=== PATIENT | female | born 1940 | race Hispanic/Latino ===

== ENCOUNTER 2019-04-02 16:38 | Emergency (ER) | payer MEDICARE, OTHER ==
[~2019-04-02] VITALS: Ht 149.9 cm; Wt 65.8 kg
[2019-04-02] MEDS ORDERED: ACETAMINOPHEN/CODEINE 300MG - 30MG TAB PO ONE (17:00)
[2019-04-02 18:26] VITALS: BP 160/60
--- NOTE | 2019-04-02 18:38 | Diagnostic Imaging Report ---
Exam: Left-sided ribs with PA chest History: Status post fall, left-sided pain Comparison: None. Findings: There is mildly decreased bone mineralization. No acute, displaced fracture or dislocation. Mild deformity of the posterolateral aspect of the left eighth rib, which may reflect an old healed fracture. No lytic or expansile lesion No soft tissue swelling. Degenerative changes in the left glenohumeral joint, with presence of 1.4 cm calcified loose body. Lungs are well-inflated and grossly clear. No consolidation or effusion. Mild prominence of the cardiac silhouette. Uncoiled aorta. Impression: 1. Mild demineralization. No acute, displaced fracture or dislocation, within the limitations of the study. Signed by: Dr. Mike Obrien M.D. on 04/02/2019 6:34 PM
--- NOTE | 2019-04-02 18:39 | Diagnostic Imaging Report ---
Exam: Bilateral Knee Series. History: Status post fall Comparison: None. Findings: Right: 3 views of the right knee. There is decreased bone mineralization. Negative for acute, displaced fracture or dislocation. Moderate tricompartmental degenerative joint disease of the right knee, with joint space narrowing particularly in the lateral femorotibial compartment, subchondral sclerosis and moderate osteophytosis. No abnormal soft tissue calcification or mass. No effusions or soft tissue swelling.. Left:3 views of the left knee. There is decreased bone mineralization. Negative for acute, displaced fracture or dislocation. Status post left total hip replacement, in satisfactory alignment. No hardware failure. No abnormal soft tissue calcification or mass. Trace suprapatellar effusion. Impression: 1. No acute abnormalities. Signed by: Dr. Mike Obrien M.D. on 04/02/2019 6:36 PM
--- OUTSIDE RECORDS SUMMARY | 2019-04-09 11:53 | XMS REPORT ---
[facility] Address Unknown Phone Unavailable Care Team Providers Care Engine Repair Supervisor Name Role Phone ROSA MARIA AGGARWAL Unavailable Unavailable Payers Payer Name Policy Type Policy Number Effective Date Expiration Date Problems This patient has no known problems. Allergies, Adverse Reactions, Alerts Allergy Name Allergy Type Status Severity Reaction(s) Onset Date Inactive Date Treating Clinician Comments No Known Drug Allergies DA Active U 2017-02-17 00:00:00 No Known Allergies DA Active U 2013-04-23 00:00:00 Medications This patient has no known medications. Results Test Description Test Time Test Comments Text Results Atomic Results Result Comments KNEE THREE VIEWS BILATERAL 2019-04-02 18:34:00 [place] [address] Patient Name: MARY HOLBROOK I MR #: [id number] : 1940 Age/Sex: 78/F Req #: [id number] Adm Physician: Ordered by: OLIVIA MORA MUD TEMPERER Report #: [id number] Location: ER Room/Bed: Procedure: [id number] DX/KNEE THREE VIEWS BILATERAL Exam Date: 04/02/19 Exam Time: 1730 REPORT STATUS: Signed Exam: Bilateral Knee Series. History: Status post fall Comparison: None. Findings: Right: 3 views of the right knee. There is decreased bone mineralization. Negative for acute, displaced fracture or dislocation. Moderate tricompartmental degenerative joint disease of the right knee, with joint space narrowing particularly in the lateral femorotibial compartment, subchondral sclerosis and moderate osteophytosis. No abnormal soft tissue calcification or mass. No effusions or soft tissue swelling.. Left:3 views of the left knee. There is decreased bone mineralization. Negative for acute, displaced fracture or dislocation. Status post left total hip replacement, in satisfactory alignment. No hardware failure. No abnormal soft tissue calcification or mass. Trace suprapatellar effusion. Impression: 1. No acute abnormalities. Signed by: Dr. Dmitriy Obrien M.D. on 04/02/2019 6:36 PM Dictated By: DMITRIY OBRIEN MD 35 Transcribed By: ALL on 04/02/191835 COPY TO: OLIVIA MORA NP/HEAVENLY 2019-04-02 18:30:00 [place] [address] Patient Name: MARY HOLBROOK I MR #: [id number] : 1940 Age/Sex: 78/F Req #: [id number] [facility] Physician: Ordered by: OLIVIA MORA NP Report #: [id number] Location: Room/Bed: Procedure: [id number] DX/RIBS UNILAT W/CXR Exam Date: 04/02/19 Exam Time: 1730 REPORT STATUS: Signed Exam: Left-sided ribs with PA chest History: Status post fall, left-sided pain Comparison: None. Findings: There is mildly decreased bone mineralization. No acute, displaced fracture or dislocation. Mild deformity of the posterolateral aspect of the left eighth rib, which may reflect an old healed fracture. No lytic or expansile lesion No soft tissue swelling. Degenerative changes in the left glenohumeral joint, with presence of 1.4 cm calcified loose body. Lungs are well-inflated and grossly clear. No consolidation or effusion. Mild prominence of the cardiac silhouette. Uncoiled aorta. Impression: 1. Mild demineralization. No acute, displaced fracture or dislocation, within the limitations of the study. Signed by: Dr. Dmitriy Obrien M.D. on 04/02/2019 6:34 PM Dictated By: DMITRIY OBRIEN MD 33 Transcribed By: ALL on 04/02/191833 COPY TO: OLIVIA MORA NP SURGICAL SPECIMENS 2018-02-16 09:51:00 RUN DATE: 03/04/18 [facility] PAGE 1 RUN TIME: 2241 Specimen Inquiry RUN USER: INTERFACE PATIENT: MARY HOLBROOK LOC: Y.5TH #: [id number] AGE/SX: 77/F ROOM: [facility] RE02/10/18REG DR: Balwinder Reagan MD : 38 BED: A DIS: 02/11/18 STATUS: DIS IN TLOC: SPEC #: [id number] RECD: 02/10/18 STATUS: [facility] #: [id number] [place]: 02/10/[address] [facility] DR: Balwinder Reagan MD ENTERED: 02/10/18 SP TYPE: SURG OTHR DR: Arthur Torres MD Undefined ProviderORDERED: LEVEL 4 G/M, DECALCIFICATION COMMENTS: SOURCE: LEFT FEMORAL CONDYLE CODES: [id number] - ARTICULAR SYSTE [id number] - BONE CALCIUM, NOS [id number] - BONE PSEUDOGOUT, NOS [id number] - BONE DEPOSITION, NOS [id number] - BONE EXCISION, NOS COPIES TO: [place] [address] [place] [address] [email or web address] Arthur Torres MD [address] [address] Undefined Provider ICD CODES: 275.4 - PROCEDURES: LEVEL 4 G/M (Incomplete) DECALCIFICATION (Incomplete) TISSUES: BONE,NOS ANATOMIC PATHOLOGY DIAGNOSIS LEFT FEMORAL CONDYLE, EXCISION: - OSTEOARTHRITIS/DEGENERATIVE JOINT DISEASE. - FOCAL CALCIUM PYROPHOSPHATE DIHYDRATE CRYSTAL DEPOSITION (PSEUDOGOUT). CLINICAL HISTORY/PRE-OP DIAG Left knee osteoarthritis. CONTINUED ON NEXT PAGE ----- RUN DATE: 03/04/18 [facility] PAGE 2 RUN TIME: 2 Specimen Inquiry RUN USER: INTERFACE SPEC #: [id number] PATIENT: MARY HOLBROOK #[id number] (Continued) ------- COMMENTS There is no xray available for review. PERMANENT SECTIONS PREPARED AT: [facility] DEPARTMENT OF PATHOLOGY [address] [place] [id number] GROSS DESCRIPTION The case is received in one part, labeled with the patient's name "Mary Holbrook"and accession number "[id number]", accompanied by a requisition slip labeled with thesame patient name and accession number. Received in formalin labeled "left femoral condyle" is a 5.0 x 3.0 x 0.8 cm piece oftan-yellow bone surfaced by celeste-yellow, smooth articular cartilage that shows a slight areaof cartilage thinning. The cartilage thickness ranges from 0.1 cm to 0.2 cm. Thesubchondral bone is celeste-pink and trabeculated. The cartilage has focal pinpoint areas ofchalky white material. Public Relations Associate sections of bone are submitted in cassettes [id number] decalcification. Cartilage sections, to include chalky, white areas, aresubmitted in cassette A4. (ii) MICROSCOPIC Sections of the left femoral condyle show bone and cartilage with thinning of thecartilaginous surface. There is fissuring and fibrillation with clonal chondrocyteproliferation, as well as osteophytes. The marrow is fatty. There is no osteomyelitis ormalignancy. The surface cartilage has some nodular areas of basophilic material that showrhomboid-shaped crystals on polarized light microscopy consistent with pseudogout. Signed SIGNATURE ON FILE Lindsay Sparks 02/16/18 0951 --------- END OF REPORT
== END 2019-04-02 18:53 | disposition home or self-care (01) ==
LOC: ER 16:38
DX: S20.212A Contusion of left front wall of thorax, initial encounter (principal); S20.222A Contusion of left back wall of thorax, initial encounter; W01.0XXA Fall on same level from slipping, tripping and stumbling without subsequent striking against object, initial encounter; Y93.01 Activity, walking, marching and hiking; Y92.008 Other place in unspecified non-institutional (private) residence as the place of occurrence of the external cause; I10 Essential (primary) hypertension; E11.9 Type 2 diabetes mellitus without complications
CPT/HCPCS: 71101; 99283

== ENCOUNTER 2021-03-29 17:05 | Emergency (ER) | payer MEDICARE, OTHER ==
[~2021-03-29] VITALS: Ht 149.9 cm; Wt 89.4 kg
[2021-03-29] MEDS ORDERED: MECLIZINE HCL 12.5 MG TAB PO ONE (17:30)
[2021-03-29 18:03] LABS: BASOPHILS % 0.4 % (0.0-1.0); EOSINOPHILS # (AUTO) 0.1 (0.0-0.4); EOSINOPHILS % 1.2 % (0.0-6.0); HEMOGLOBIN 13.8 g/dL (12.0-16.0); LYMPHOCYTES # (AUTO) 2.2 (1.0-3.2); LYMPHOCYTES % 27.4 % (18.0-39.1); MEAN CORPUSCULAR HEMOGLOBIN 28.8 pg (28-32); MEAN CORPUSCULAR HGB CONC 32.1 g/dL (31-35); MEAN CORPUSCULAR VOLUME 89.8 fL (81-99); MONOCYTES # (AUTO) 0.5 (0.2-0.8); MONOCYTES % 6.6 % (4.4-11.3); NEUTROPHILS # (AUTO) 5.2 (2.1-6.9); NEUTROPHILS % 64.2 % (38.7-80.0); PLATELET COUNT 121 x10e3/uL (140-360); RED BLOOD COUNT 4.79 x10e6/uL (3.6-5.1); RED CELL DISTRIBUTION WIDTH 17.4 % (11.7-14.4)
[2021-03-29 18:22] LABS: ALBUMIN 3.4 g/dL (3.5-5.0); ALBUMIN/GLOBULIN RATIO 0.9 (0.8-2.0); CALCIUM 9.4 mg/dL (8.4-10.2); CREATININE, SERUM 0.94 mg/dL (0.57-1.11)
[2021-03-29 18:28] LABS: CREATINE KINASE MB 2.8 ng/mL (0-5.0)
[2021-03-29 20:06] VITALS: BP 132/65
== END 2021-03-29 19:45 | disposition home or self-care (01) ==
LOC: ER 17:30
DX: H81.12 Benign paroxysmal vertigo, left ear (principal); E11.65 Type 2 diabetes mellitus with hyperglycemia; I10 Essential (primary) hypertension; R94.31 Abnormal electrocardiogram [ECG] [EKG]
CPT/HCPCS: 36415; 70450; 80053; 82550; 82553; 84484; 85025; 93005; 99284; J8597

== ENCOUNTER 2021-04-30 13:33 | Emergency (ER) | payer MEDICARE ==
[~2021-04-30] VITALS: Ht 149.9 cm; Wt 89.4 kg
[2021-04-30] MEDS ORDERED: ALBUTEROL SULFATE HFA 8GM INHALATION AEROSOL INH PRN (14:15)
== END 2021-04-30 16:33 | disposition home or self-care (01) ==
LOC: ER 14:13
DX: U07.1 COVID-19 (principal); J12.82 Pneumonia due to coronavirus disease 2019; I10 Essential (primary) hypertension; E11.9 Type 2 diabetes mellitus without complications; E66.9 Obesity, unspecified; Z68.39 Body mass index [BMI] 39.0-39.9, adult
CPT/HCPCS: 71045; 99283; U0002

== ENCOUNTER 2021-08-30 17:46 | Emergency (ER) | payer MEDICARE ==
[~2021-08-30] VITALS: Ht 149.9 cm; Wt 89.4 kg
[2021-08-30] MEDS ORDERED: CYCLOBENZAPRINE HCL 10 MG TAB PO ONE (18:45)
[2021-08-30] MEDS ORDERED: HYDROCODONE/APAP 5MG-325MG TAB PO ONE (18:45)
[2021-08-30 19:24] LABS: CLARITY,URINE TURBID (CLEAR); COLOR,URINE AMBER (YELLOW); KETONES,URINE TRACE (NEGATIVE); LEUKOCYTE ESTERASE ,URINE MODERATE (NEGATIVE); NITRITE,URINE POSITIVE (NEGATIVE); PROTEIN,URINE DIPSTICK 1+ (NEGATIVE); URINE UROBILINOGEN 1 mg/dL (0.2 - 1)
[2021-08-30 19:33] LABS: BACTERIA,URINE MANY /HPF; RBC,URINE 0-5 /HPF (0-5); WBC,URINE (MAN) 21-50 /HPF (0-5)
[2021-08-30] MEDS ORDERED: METHOCARBAMOL750 MG PO (20:01)
[2021-08-30] MEDS ORDERED: ANAPROX DS550 MG PO (20:01)
[2021-08-30] MEDS ORDERED: CEPHALEXIN500 MG PO (20:01)
[2021-08-30 20:29] VITALS: BP 129/84
== END 2021-08-30 20:32 | disposition home or self-care (01) ==
LOC: ER 18:08
DX: M54.41 Lumbago with sciatica, right side (principal); I10 Essential (primary) hypertension; E11.9 Type 2 diabetes mellitus without complications; M81.8 Other osteoporosis without current pathological fracture
CPT/HCPCS: 72110; 81001; 99283